=== PATIENT | male | born 1995 | race Caucasian/White ===

== ENCOUNTER 2018-07-02 19:12 | Emergency (ER) | payer BC, MEDICAID, SELFPAY ==
[2018-07-02 19:18] VITALS: BP 138/71; PULSE 66; RESP 16; TEMP 36.7; O2SAT 96
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
[2018-07-02 20:27] VITALS: BP 136/75; PULSE 68; RESP 16; TEMP 36.7; O2SAT 96
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
== END 2018-07-02 20:31 | disposition home or self-care (01) ==
PROVIDERS: Emergency Provider Student in an Organized Health Care Education/Training Program; PCP Family Medicine
DX: S06.0X0A Concussion without loss of consciousness, initial encounter (principal); R11.0 Nausea; M54.2 Cervicalgia; V43.52XA Car driver injured in collision with other type car in traffic accident, initial encounter; Z53.29 Procedure and treatment not carried out because of patient's decision for other reasons
CPT/HCPCS: 99283

== ENCOUNTER 2021-05-04 18:22 | Emergency (ER) | payer OTHER, SELFPAY ==
[2021-05-04 18:26] VITALS: BP 154/96; PULSE 83; RESP 18; TEMP 36.2; O2SAT 97
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
--- NOTE | 2021-05-04 19:11 | NUR.NOTE ---
Pt brought to eyewash station to flush right eye, tolerated well. Pt c/o headache, provider notified, order recieved for intervention, medicated as ordered, cont. to monitor.Nursing Note:
[2021-05-04] MEDS: Ibuprofen 600 MG TAB PO (19:16)
[2021-05-04 19:22] LABS: ALT 31 U/L (16-63); AST 17 U/L (15-37); Albumin 4.4 g/dL (3.4-5.0); Alkaline Phosphatase 80 U/L (46-116); Bilirubin, Direct 0.1 mg/dL (0.0-0.2); Bilirubin, Total 0.7 mg/dL (0.2-1.0); Total Protein 8.5 g/dL (6.4-8.2)
[2021-05-04 19:37] VITALS: BP 132/78; PULSE 62; RESP 18; TEMP 37; O2SAT 99
[2021-05-04 19:58] LABS: HIV 1/2 Ab Rapid Negative (Negative)
[2021-05-08 10:09] LABS: HBs Antibody, Quant 7.7 mIU/mL (See Note); Hepatitis B Surface Ab Negative (See Note)
[2021-05-08 10:39] LABS: Hepatitis B Surface Ag Negative (Negative)
[2021-05-08 10:54] LABS: Hepatitis C Ab w Rflx HCV PCR Negative (Negative)
[2021-05-08 11:05] LABS: HIV-1/2 Ag & Ab Screen Negative (Negative)
== END 2021-05-04 19:38 | disposition home or self-care (01) ==
PROVIDERS: Emergency Provider Physician Assistant; PCP Family Medicine
DX: Z77.21 Contact with and (suspected) exposure to potentially hazardous body fluids (principal); Y99.0 Civilian activity done for income or pay
CPT/HCPCS: 36415; 80076; 86706; 86803; 87340; 87389; 99283; 99282

== ENCOUNTER 2021-05-17 02:15 | Outpatient (CLI) | payer BC, MEDICAID, SELFPAY ==
[2021-05-17 14:19] LABS: HCT 43.1 % (40.0-50.0); HGB 14.3 g/dL (13.5-17.5); MCH 28.1 pg (27.0-33.0); MCHC 33.2 % (32.0-36.0); MCV 84.8 fL (80-95); MPV 8.8 fL (8.0-11.0); Platelet Count 240 10^3/uL (130-400); RBC 5.08 10^6/uL (4.36-5.78); RDW 12.9 % (11.8-14.1); RDW-SD 39.8 fL; WBC 5.42 10^3/uL (4.4-10.8)
[2021-05-17 16:22] LABS: ALT 31 U/L (16-63); AST 16 U/L (15-37); Albumin 4.1 g/dL (3.4-5.0); Alkaline Phosphatase 77 U/L (46-116); Anion Gap 7.1 mmol/L (3-11); BUN 13 mg/dL (7-18); Bilirubin, Total 0.7 mg/dL (0.2-1.0); CO2 29.9 mmol/L (21.0-32.0); CREATININE 1.1 mg/dL (0.70-1.30); Calcium 8.7 mg/dL (8.5-10.1); Chloride 104 mmol/L (98-107); Glucose 88 mg/dL (74-106); Potassium 3.9 mmol/L (3.5-5.1); Sodium 141 mmol/L (136-145); TSH (W/Ref FT4) 1.81 uIU/mL (0.36-3.74); Total Protein 7.6 g/dL (6.4-8.2)
== END 2021-05-17 02:16 | disposition home or self-care (01) ==
LOC: LBO 02:15
PROVIDERS: PCP Family Medicine; Visit Provider Family Medicine
DX: E03.9 Hypothyroidism, unspecified (principal); R53.83 Other fatigue; R10.9 Unspecified abdominal pain
CPT/HCPCS: 36415; 80053; 85027; 84443

== ENCOUNTER 2021-06-06 11:24 | Outpatient (REF) | payer BC, MEDICAID, SELFPAY ==
[2021-06-07 15:07] LABS: COVID-19 RT-PCR UVMMC Result Negative (Negative)
== END 2021-06-06 11:25 | disposition home or self-care (01) ==
LOC: LBN 11:24
PROVIDERS: PCP Family Medicine; Visit Provider Nurse Practitioner
DX: J02.9 Acute pharyngitis, unspecified (principal); Z20.822 Contact with and (suspected) exposure to COVID-19
CPT/HCPCS: U0003; 87070

== ENCOUNTER 2021-11-02 10:53 | Outpatient (CLI) | payer BC, MEDICAID, SELFPAY ==
[2021-11-02 13:53] LABS: Calculated LDL 91 mg/dL (<100); Cholesterol 147 mg/dL (<200); HDL Cholesterol 47 mg/dL (40-60); Triglyceride 45 mg/dL (<150)
== END 2021-11-02 10:54 | disposition home or self-care (01) ==
LOC: LOS 10:53
PROVIDERS: PCP Family Medicine; Referring Provider Family Medicine; Visit Provider Family Medicine
DX: E78.5 Hyperlipidemia, unspecified (principal)
CPT/HCPCS: 36415; 80061

== ENCOUNTER 2023-06-21 05:50 | Emergency (ER) | payer MEDICAID, SELFPAY ==
[2023-06-21] VITALS (12 sets, daily range): BP systolic 138–156; BP diastolic 77–105; PULSE 86–92; RESP 18; TEMP 37.5; O2SAT 93–98
--- NOTE | 2023-06-21 06:00 | DI.CT_ITS ---
Exam(s) CT ABDOMEN PELVIS W EXAM: CT ABDOMEN PELVIS W CLINICAL HISTORY: epigastric pain, vomiting, r/o GB pathology TECHNIQUE: Imaging Protocol: Axial computed tomography images with coronal and sagittal reformatted images were created and reviewed CONTRAST MATERIAL: Intravenous: Omnipaque 350 Contrast volume:100 mL Oral: No COMPARISON: No exams were available for comparison FINDINGS: ABDOMEN: Lung Bases: Normal where visualized. Liver: Normal density. No measurable mass. Portal, Superior Mesenteric, and Splenic Veins: Unremarkable. Gallbladder and Biliary Tract: No radiodense calculus or dilation. Pancreas: Normal density, no abnormal calcifications or inflammatory process. Spleen: Normal. Adrenals: No masses seen. Kidneys: Normal size, contour and axis. No radiodense stones or obstructive uropathy. No masses seen. Note is made of a retroaortic left renal vein. Abdominal Aorta: Abdominal portion non-dilated. Bowel: The stomach is fluid-filled but otherwise unremarkable. There are fluid-filled loops of small bowel without bowel wall thickening or transition to suggest obstruction. This raises a question of an enteritis or diarrheal illness. The colon is of normal caliber and has an unremarkable appearanc e. Appendix is unremarkable. Peritoneal Cavity: No ascites, collection or mesenteric inflammatory response. No free air. Lymph Nodes: Within normal limits. Bones: Within normal limits for the patient's age. Soft Tissues: Unremarkable. PELVIS: Bladder: Symmetric distention, no gross wall thickening. Reproductive Organs: Unremarkable as visualized. Lymph Nodes: Within normal limits. Bones: Within normal limits for the patient's age. IMPRESSION: 1. Fluid-filled loops of small bowel which can be seen with a diarrheal illness or enteritis. 2. No evidence of cholelithiasis or biliary ductal dilatation. 3. Findings were discussed with the emergency department on the date of the examination. RADIATION DOSE DELIVERED: 1,169.47mGy.cm Total DLP DATA REPOSITORY: All CT scans at this facility are submitted to the National Radiology Data Registry (NRDR) Dose Index Registry (DIR) with the [employer] (ACR). RADIATION OPTIMIZATION: All CT scans at this facility use at least one of these dose optimization te chniques: automated exposure control; mA and/or kV adjustment per patient size (includes targeted exa ms where dose is matched to clinical indication); or iterative reconstruction.
[2023-06-21] MEDS: Normal Saline 500 ML IV (06:13)
[2023-06-21] MEDS: Ketorolac 15 MG/ML VIAL IVP (06:13)
[2023-06-21] MEDS: Ondansetron 4 MG/2 ML VIAL IVP (06:13)
[2023-06-21] MEDS: ACETAMINOPHEN 1,000 MG/100 ML BTL 400 MG IVPB (06:13)
--- NOTE | 2023-06-21 06:15 | W.ED.GENAD ---
HPI General Stated Complaint: Abd Prob LONNY: 3 Date/Time Provider Initiated Documentation: 06/21/23 05:53. HPI Narrative: 28-year-old male presents today for abdominal pain. Patient states that about 6 hours ago the pain came on suddenly, it is a pressure-like sensation in the epigastric region. However it radiates throughout the rest of his abdomen. He had a single episode of vomiting. He denies any diarrhea or fever. He did eat pizza and on spicy buffalo wings last night, but these are not out of the ordinary for him. He did drink some alcohol a few days ago but this was only a couple beers. He denies any chest pain. He denies any numbness or tingling. He denies symptoms like this recently otherwise. No other complaints at this time. Related Data Home Medications Medication Instructions Recorded Confirmed ibuprofen 400 mg tablet 1 tab PO PRN PRN 07/02/18 06/21/23 dextroamphetamine-amphetamine ER 10 mg PO DAILY #28 caps 04/09/23 06/21/23 10 mg 24hr capsule,extend release dextroamphetamine-amphetamine ER 30 mg PO DAILY #28 caps 04/09/23 06/21/23 30 mg 24hr capsule,extend release Previous Rx's Medication Instructions Recorded dextroamphetamine-amphetamine ER 10 mg PO DAILY #28 caps 04/09/23 10 mg 24hr capsule,extend release dextroamphetamine-amphetamine ER 30 mg PO DAILY #28 caps 04/09/23 30 mg 24hr capsule,extend release Allergies Allergy/AdvReac Type Severity Reaction Status Date / Time No Known Allergies Allergy Verified 06/21/23 05:59 Review of Systems All systems reviewed & are unremarkable except as noted in HPI and below PFSH All Active Problems (Updated 06/21/23 @ 07:15 by Josias Shipley DO) Epigastric pain (Acute) Back pain (Acute) ADD (attention deficit disorder) (Acute) Anxiety and depression (Chronic) Chest pain, atypical (Acute) Exposure to body fluid (Acute) Physical exam (Acute) Encounter for immunization (Acute) Pilonidal cyst (Chronic) Has had 2 I&Ds for this but no surgical repair Tonsillar hypertrophy (Acute) Medical History No significant past medical history Surgical History H/O wisdom tooth extraction S/P right rotator cuff repair (~2018) Family History Mother No problems noted. Father No problems noted. Sister No problems noted. Brother No problems noted. Maternal Grandfather , in his 80s Heart disease Myocardial infarction Bladder cancer Maternal Grandmother No problems noted. Paternal Grandfather Heart disease Paternal Grandmother Hypertension Depression Pancreatic cancer Type 2 diabetes mellitus Social History Smoking/Tobacco Use Status: Never Smoking risk assessment performed?: Yes Alcohol Intake: current Alcohol Intake frequency: holidays/special occasions only Alcohol type: beer Drug use: Never Substance use type: does not use Do you feel safe at home: Yes Do you feel safe in your relationship?: Yes Exam Narrative Exam Narrative: 1.Const: Well-nourished, Well-developed, appearing stated age 2.Eyes: PERRL, no conjunctival injection, and symmetrical lids. 3.ENT: Atraumatic external nose and ears. Moist MM. Neck: Symmetric, trachea midline, No thyromegaly. 4.CVS: +S1/S2, No murmurs or gallops. Peripheral pulses 2+ and equal in all extremities. Brisk capillary refill in all extremities. 5.RESP: Unlabored respiratory effort. Clear to auscultation bilaterally. No wheezes rales or rhonchi 6.GI: Soft, nondistended. Mild voluntary guarding. Tenderness in the left upper mid epigastric and right upper quadrants. No pain to McBurney's point. Questionably positive Lala sign. 7.MSK: Normocephalic/Atraumatic, Extremities w/o deformity or ttp No cyanosis or clubbing, Normal movement of all extremities 8.Skin: Warm, Dry. No rashes or lesions. 9.Neuro: microbiology soil scientist II-XII grossly intact. Sensation grossly intact, no focal neurologic deficits. 10.Psych: (AAO) x3. Appropriate mood and affect Course Vital Signs Vital signs: Vital Signs Temperature 37.5 C 06/21/23 05:53 Pulse 90 06/21/23 05:53 Respiratory Rate 18 06/21/23 05:53 Blood Pressure 156/86 H 06/21/23 05:53 Pulse Oximetry 98 06/21/23 05:53 Temperature 37.5 C 06/21/23 05:53 Temperature Source Skin 06/21/23 05:53 Pulse 90 06/21/23 05:53 Respiratory Rate 18 06/21/23 05:53 Blood Pressure 156/86 H 06/21/23 05:53 Blood Pressure Position Sitting 06/21/23 05:53 Pulse Oximetry 98 06/21/23 05:53 Oxygen Delivery Method Room Air 06/21/23 05:53 Oxygen Flow Rate 0 06/21/23 05:53 Medical Decision Making 28-year-old male presents today for abdominal pain. Patient states that about 6 hours ago the pain came on suddenly, it is a pressure-like sensation in the epigastric region. However it radiates throughout the rest of his abdomen. He had a single episode of vomiting. He denies any diarrhea or fever. He did eat pizza and on spicy buffalo wings last night, but these are not out of the ordinary for him. He did drink some alcohol a few days ago but this was only a couple beers. He denies any chest pain. He denies any numbness or tingling. He denies symptoms like this recently otherwise. No other complaints at this time. Exam demonstrates epigastric left and right upper quadrant tenderness. Questionable positive Lala sign. No pain in the lower abdomen of significance. No CVA tenderness. Differential includes cholecystitis, pancreatitis, less likely gastric irritation. Kidney stone is on the differential as well. Will give IV NSAIDs, Zofran, GI cocktail, check labs, get a CT scan of the abdomen to go over monitor closely and reassess. Symptoms appearing consistent with ACS or cardiac etiology. 7:13 AM On reassessment patient is feeling much better after Zofran Toradol and Ofirmev. Pain has diminished to a 2 out of 10. He states that he feels well and the nausea is gone. Laboratory workup shows no white count, minimal left shift. No bandemia. Electrolytes normal, bilirubin is elevated at 1.4, creatinine elevated at 1.5 which is atypical. He denies any recent ibuprofen use. Lipase normal. Patient has not urinated yet. We will add an additional liter of normal saline in addition to the 500 that he already got. Pending CT scan results at this time. Personal review demonstrates fluid-filled small bowel, slightly distended stomach. Gallbladder appears mildly enlarged. Pending formal radiology report. Patient has been signed out to my colleague Dr. Frye. She will follow-up on urinalysis, CT scan results, and reassessment. If CT scan normal, after fluids I feel that the patient may be a good candidate for discharge otherwise. Quality:SDOH Health Related Social Needs: No Data to Display Discharge Plan Discharge Details Chief Complaint: Abd Prob Clinical Impression: Epigastric pain Primary Care Provider: Charly Vázquez ED Provider: Josias Shipley Home Meds and New Rx's Prescriptions: No Action dextroamphetamine-amphetamine 10 mg capsule,extended release 24hr 10 mg PO DAILY MDD 1 cap Qty: 28 0RF Rx Instructions: take with a 30 mg to equal 40 mg/day dextroamphetamine-amphetamine 30 mg capsule,extended release 24hr 30 mg PO DAILY MDD 1 cap Qty: 28 0RF Rx Instructions: take with a 10 mg cap to equal 40 mg/day ibuprofen 400 mg Tablet 1 tab PO PRN PRN
[2023-06-21 06:31] LABS: Abs Immature Grans 0.02 10^3/uL (0.0-0.06); Absolute Basophil Count 0.02 10^3/uL (0.0-0.2); Absolute Eosinophil Count 0.16 10^3/uL (0.0-0.7); Absolute Lymphocyte Count 1.13 10^3/uL (1.2-3.4); Absolute Monocyte Count 0.87 10^3/uL (0.1-0.8); Absolute Neutrophil Count 8.26 10^3/uL (1.2-6.7); Basophils % 0.2; Eosinophils % 1.5; HCT 46.5 % (40.0-50.0); HGB 15.6 g/dL (13.5-17.5); Immature Grans % 0.2; Lymphocytes % 10.8; MCH 28.6 pg (27.0-33.0); MCHC 33.5 % (32.0-36.0); MCV 85 fL (80-95); MPV 8.8 fL (8.0-11.0); Monocytes % 8.3; Platelet Count 284 10^3/uL (130-400); RBC 5.45 10^6/uL (4.36-5.78); RDW 13.4 % (11.8-14.1); RDW-SD 41.4 fL; WBC 10.46 10^3/uL (4.4-10.8)
[2023-06-21 06:50] LABS: ALT 27 U/L (16-63); AST 18 U/L (15-37); Alkaline Phosphatase 77 U/L (46-116); Anion Gap 7.7 mmol/L (3-11); BUN 17 mg/dL (7-18); Bilirubin, Total 1.4 mg/dL (0.2-1.0); CO2 31.3 mmol/L (21.0-32.0); CREATININE 1.5 mg/dL (0.70-1.30); Chloride 102 mmol/L (98-107); Estimated GFR 65.03 (mL/min/1.73m2); Glucose 101 mg/dL (74-106); Lipase 34 U/L (16-77); Potassium 4.6 mmol/L (3.5-5.1); Sodium 141 mmol/L (136-145); Total Protein 8.1 g/dL (6.4-8.2)
[2023-06-21] MEDS: Omnipaque 350 MG/ML 100 ML BTL IJ (07:00)
[2023-06-21] MEDS: Normal Saline - Diluent 50 ML VIAL IJ (07:01)
[2023-06-21] MEDS: Normal Saline Flush 10 ML SYR IVP (07:01)
[2023-06-21] MEDS: Normal Saline 1,000 ML 1000 ML IV (07:10)
--- NOTE | 2023-06-21 07:23 | ED.PROG_ITS ---
Date of service: 06/21/23 Time of Service: 07:00 Medical Decision Making 28-year-old male presented with epigastric pain and an episode of vomiting. At time of signout patient is feeling improved. Laboratory studies show mildly elevated creatinine today. Patient did receive 2 L of IV fluid. His symptoms remained improved. At time of my assessment he is not having significant pain. He has not had any further vomiting. CT shows fluid-filled loops of bowel. Likely some type of enteritis. Patient is aware of findings. He understands that this may progress to more vomiting and diarrhea. Will discharge home. Patient to push fluids and advance diet as tolerated. Patient is to follow up with PMD. Patient understands that symptoms may worsen and the testing in the emergency department does not rule out the early stages of a possible surgical condition. Will return to ED for worsening pain, migration of pain to right lower abdomen, high fevers, or intractable vomiting. Quality:[facility] Health Related Social Needs: No Data to Display Sign Out Sign Out Data: Sign Out Comment: Epigastric pain, single episode of vomiting. Please follow-up on CT scan and urinalysis. Patient's symptoms notably improved since medications, likely a good candidate for discharge if imaging and urinalysis normal. Last updated by Josias Shipley DO at 06/21/23 07:16 Discharge Plan Disposition Patient Disposition: Home Discharge Details Clinical Impression: Epigastric pain, Vomiting Primary Care Provider: Charly Vázquez ED Provider: Ariella Rowe Home Meds and New Rx's Prescriptions: New ondansetron 4 mg tablet,disintegrating 4 mg PO Q6H Qty: 20 0RF No Action dextroamphetamine-amphetamine 10 mg capsule,extended release 24hr 10 mg PO DAILY MDD 1 cap Qty: 28 0RF Rx Instructions: take with a 30 mg to equal 40 mg/day dextroamphetamine-amphetamine 30 mg capsule,extended release 24hr 30 mg PO DAILY MDD 1 cap Qty: 28 0RF Rx Instructions: take with a 10 mg cap to equal 40 mg/day ibuprofen 400 mg Tablet 1 tab PO PRN PRN Discharge Instructions Instructions: Gastroenteritis (ED), Epigastric Pain (ED) Additional Instructions: Symptoms may worsen and the testing in the emergency department does not rule out the early stages of a possible surgical condition. Return to ED for worsening pain, migration of pain to right lower abdomen, high fevers, or intractable vomiting. Referrals: Chraly Vázquez MD [Primary Care Provider] - 3 days Discharge Data Discharge Physician: Ariella Rowe
[2023-06-21 08:22] LABS: Bilirubin Negative (Negative); Blood Negative (Negative); Clarity Clear (Clear); Glucose Negative (Negative); Ketones Negative (Negative); Leukocyte Esterase Negative (Negative); Nitrite Negative (Negative); Specific Gravity 1.015 (1.005-1.025); Urobilinogen 0.2 mg/dL (Up to 0.2)
[2023-06-21] MEDS: Ondansetron O.D.T. 4 MG TABEF, 3 TABS/BTL PO (08:42)
== END 2023-06-21 08:42 | disposition home or self-care (01) ==
PROVIDERS: Student in an Organized Health Care Education/Training Program; Emergency Provider Emergency Medicine Emergency Medical Services; PCP Family Medicine
DX: R10.13 Epigastric pain (principal); R11.0 Nausea; K52.9 Noninfective gastroenteritis and colitis, unspecified
CPT/HCPCS: 00123; 80053; 83690; 96361; 96374; 96375; 99285; 74177; 81003; 85025; 99284; J0131; J1885; J2405; J3490

== ENCOUNTER 2023-09-06 20:59 | Emergency (ER) | payer OTHER, SELFPAY ==
[2023-09-06] VITALS (13 sets, daily range): BP systolic 88–143; BP diastolic 61–98; PULSE 70–100; RESP 16–18; TEMP 36.9; O2SAT 97
--- NOTE | 2023-09-06 21:15 | DI.RAD_ITS ---
Exam(s) XR ABDOMEN FLAT UPRIGHT EXAM: 2D digital imaging was performed. CLINICAL HISTORY: abdominal pain. COMPARISON: CR ABDOMEN 2 VIEW FLAT, UPRIGHT from 04/17/[address] ABDOMEN PELVIS W from 06/21/2023 TECHNIQUE: Supine and upright views of the abdomen was performed. Three images were obtained. FINDINGS: LUNG BASES: Clear. BOWEL GAS PATTERN: Nondistended. There are few air-fluid level seen in the central abdomen which may represent a focal ileus. FREE AIR: None. CALCIFICATIONS: No radiopaque calcifications. OSSEOUS STRUCTURES: Normal for age. OTHER FINDINGS: None. IMPRESSION: No evidence of bowel obstruction. DATA REPOSITORY: RADIATION DOSE DELIVERED:
[2023-09-06 21:40] LABS: Abs Immature Grans 0.02 10^3/uL (0.0-0.06); Absolute Basophil Count 0.03 10^3/uL (0.0-0.2); Absolute Monocyte Count 0.68 10^3/uL (0.1-0.8); Absolute Neutrophil Count 7.96 10^3/uL (1.2-6.7); Basophils % 0.3; HCT 47.9 % (40.0-50.0); HGB 16.4 g/dL (13.5-17.5); Immature Grans % 0.2; Lymphocytes % 10.2; MCHC 34.2 % (32.0-36.0); MCV 85 fL (80-95); MPV 8.7 fL (8.0-11.0); Monocytes % 6.9; Neutrophils % 81.4; Platelet Count 322 10^3/uL (130-400); RBC 5.65 10^6/uL (4.36-5.78); RDW 12.2 % (11.8-14.1); RDW-SD 37.9 fL; WBC 9.79 10^3/uL (4.4-10.8)
[2023-09-06] MEDS: FAMOTIDINE 20 MG in Normal Saline 100 ML 400 MG IVPB (21:45)
[2023-09-06 21:55] LABS: ALT 28 U/L (16-63); AST 13 U/L (15-37); Alkaline Phosphatase 90 U/L (46-116); Anion Gap 9.1 mmol/L (3-11); BUN 18 mg/dL (7-18); Bilirubin, Total 1.2 mg/dL (0.2-1.0); CO2 27.9 mmol/L (21.0-32.0); CREATININE 1.2 mg/dL (0.70-1.30); Calcium 8.6 mg/dL (8.5-10.1); Chloride 103 mmol/L (98-107); Glucose 108 mg/dL (74-106); Lipase 28 U/L (16-77); Potassium 4.1 mmol/L (3.5-5.1); Sodium 140 mmol/L (136-145); Total Protein 8.4 g/dL (6.4-8.2)
[2023-09-06] MEDS: Hyoscyamine 0.5 MG/ML VIAL 0.25 MG IVP (22:18)
--- NOTE | 2023-09-06 22:34 | DI.VRAD_ITS ---
PROCEDURE INFORMATION: Exam: XR Abdomen Exam date and time: 09/06/2023 9:52 PM Age: 28 years old Clinical indication: Patient HX: Abdominal pain x this morning, no HX of abd surg TECHNIQUE: Imaging protocol: Radiologic exam of the abdomen. Views: 2 Views. Upright and supine views. COMPARISON: CT ABDOMEN PELVIS W 06/21/2023 6:54 AM FINDINGS: Gastrointestinal tract: A couple dilated loops of small bowel in the mid abdomen with non differential air-fluid levels, suggests focal ileus. Intraperitoneal space: Normal. No free air. Bones/joints: Unremarkable for age. IMPRESSION: A couple dilated loops of small bowel in the mid abdomen with non differential air-fluid levels, suggests focal ileus. Dictated and Authenticated by: Mati Ndiaye MD. Ordering:AIMEE Saucedo MD
[2023-09-06] MEDS: Ketorolac 15 MG/ML VIAL IVP (22:53)
[2023-09-06] MEDS: Normal Saline 1,000 ML 1000 ML IV (22:53)
--- NOTE | 2023-09-06 22:55 | ED.GENADUL_ITS ---
Discharge Plan Disposition Patient Disposition: Home Condition: Stable Discharge Details Clinical Impression: Abdominal pain Primary Care Provider: Charly Vázquez ED Provider: Sheryl Lafleur Home Meds and New Rx's Prescriptions: New prochlorperazine maleate [Compazine] 10 mg tablet 10 mg PO Q6H PRNQty: 10 0RF Continued dextroamphetamine-amphetamine 15 mg capsule,extended release 24hr 45 mg PO DAILY MDD 3 caps Qty: 90 0RF ibuprofen 400 mg Tablet 1 tab PO PRN PRN Discharge Instructions Instructions: Abdominal Pain (ED) Additional Instructions: take compazine as needed for nausea and vomiting increase fluids, 8,8 oz glasses of water bland, low fiber diet recommend outpatient colonscopy recheck in 24 hours with new, persistent or worsening complaints Referrals: Charly Vázquez MD [Primary Care Provider] - Discharge Data Discharge Date/Time-TO BE ENTERED AT DEPARTURE: 09/06/23 23:51 HPI General Date/Time Provider Initiated Documentation: 09/06/23 21:19 . HPI Narrative: This 28-year-old male presents with left upper quadrant and right upper quadrant pain. Denies any nausea or vomiting. He states this is the same discomfort he was having when he was in the emergency department in June. He states he has moved his bowels several times today but it has been soft. He has not had a colonoscopy per patient. He denies any blood in stool. Denies any chest pain or shortness of breath. Denies any dizziness or weakness. Denies any urinary symptoms. Related Data Home Medications Medication Instructions Recorded Confirmed ibuprofen 400 mg tablet 1 tab PO PRN PRN 07/02/18 09/06/23 dextroamphetamine-amphetamine ER 45 mg (3 x 15 mg) PO DAILY ADD #90 09/02/23 09/06/23 15 mg 24hr capsule,extend release caps prochlorperazine maleate 10 mg 10 mg PO Q6H PRN #10 tabs 09/06/23 tablet (Compazine) Previous Rx's Medication Instructions Recorded dextroamphetamine-amphetamine ER 45 mg (3 x 15 mg) PO DAILY ADD #90 09/02/23 15 mg 24hr capsule,extend release caps prochlorperazine maleate 10 mg 10 mg PO Q6H PRN #10 tabs 09/06/23 tablet (Compazine) Allergies Allergy/AdvReac Type Severity Reaction Status Date / Time No Known Allergies Allergy Verified 09/06/23 21:04 General Stated Complaint: Abd Prob LONNY: 3 Course Vital Signs Vital signs: Vital Signs Temperature 36.9 C 09/06/23 21:02 Pulse 85 09/06/23 21:02 Respiratory Rate 18 09/06/23 21:02 Blood Pressure 140/91 H 09/06/23 21:02 Pulse Oximetry 97 09/06/23 21:02 Temperature 36.9 C 09/06/23 21:02 Pulse 98 H 09/06/23 22:15 Respiratory Rate 18 09/06/23 21:02 Respiratory Effort Normal 09/06/23 21:03 Blood Pressure 143/89 H 09/06/23 22:15 Blood Pressure Mean 104 09/06/23 22:15 Pulse Oximetry 97 09/06/23 21:02 Oxygen Delivery Method Room Air 09/06/23 21:02 Oxygen Flow Rate 0 09/06/23 21:02 Lab/Test Results Lab/Test Results: Laboratory Tests Range/Units 09/06/23 21:14 WBC (4.4-10.8) 10^3/uL 9.79 RBC (4.36-5.78) 10^6/uL 5.65 Hgb (13.5-17.5) g/dL 16.4 Hct (40.0-50.0) % 47.9 MCV (80-95) fL 85 MCH (27.0-33.0) pg 29.0 MCHC (32.0-36.0) % 34.2 RDW (11.8-14.1) % 12.2 Plt Count (130-400) 10^3/uL 322 MPV (8.0-11.0) fL 8.7 Immature Gran % 0.2 Neutrophils % 81.4 Lymphocytes % 10.2 Monocytes % 6.9 Eosinophils % 1.0 Basophils % 0.3 Nucleated RBC % (0.0-0.3) % 0.0 Absolute Neutrophils (1.2-6.7) 10^3/uL 7.96 H Absolute Lymphocytes (1.2-3.4) 10^3/uL 1.00 L Absolute Monocytes (0.1-0.8) 10^3/uL 0.68 Absolute Eosinophils (0.0-0.7) 10^3/uL 0.10 Absolute Basophils (0.0-0.2) 10^3/uL 0.03 Sodium (136-145) mmol/L 140 Potassium (3.5-5.1) mmol/L 4.1 Chloride (98-107) mmol/L 103 Carbon Dioxide (21.0-32.0) mmol/L 27.9 Anion Gap (3-11) mmol/L 9.1 BUN (7-18) mg/dL 18 Creatinine (0.70-1.30) mg/dL 1.2 Est GFR (CKD-EPI 2020) (mL/min/1.73m2) 85.00 Glucose (74-106) mg/dL 108 H Calcium (8.5-10.1) mg/dL 8.6 Total Bilirubin (0.2-1.0) mg/dL 1.2 H AST (15-37) U/L 13 L ALT (16-63) U/L 28 Alkaline Phosphatase (46-116) U/L 90 Total Protein (6.4-8.2) g/dL 8.4 H Albumin (3.4-5.0) g/dL 4.0 Lipase (16-77) U/L 28 Medical Decision Making 28-year-old male presenting with left upper quadrant right upper quadrant pain. Had CT scan for similar presentation approximately 2 months ago she did not show acute abnormality per radiology interpretation my review Reviewed patient's prior documentation, creatinine was mildly elevated at that time, today creatinine is within normal limits Mild elevation in bilirubin likely consistent with Combs Bears, consistent with patient Patient has a benign abdominal exam, x-ray shows possible ileus however patient is moving bowels without vomiting, no evidence of obvious bowel obstruction, no prior abdominal surgeries Feeling improvement after Levsin, will hold on additional Levsin at home, will supply Compazine and Pepcid. Encouraged to be reevaluated in 24 hours with persistent discomfort. return precautions reviewed and pt expressed understanding Quality:SDOH Health Related Social Needs: No Data to Display PFSH All Active Problems (Updated 09/06/23 @ 23:09 by KODY Sevilla) Abdominal pain (Acute) Back pain (Acute) ADD (attention deficit disorder) (Acute) Anxiety and depression (Chronic) Chest pain, atypical (Acute) Exposure to body fluid (Acute) Physical exam (Acute) Encounter for immunization (Acute) Pilonidal cyst (Chronic) Has had 2 I&Ds for this but no surgical repair Tonsillar hypertrophy (Acute) Medical History No significant past medical history Surgical History H/O wisdom tooth extraction S/P right rotator cuff repair (~2018) Family History Mother No problems noted. Father No problems noted. Sister No problems noted. Brother No problems noted. Maternal Grandfather , in his 80s Heart disease Myocardial infarction Bladder cancer Maternal Grandmother No problems noted. Paternal Grandfather Heart disease Paternal Grandmother Hypertension Depression Pancreatic cancer Type 2 diabetes mellitus Social History Smoking/Tobacco Use Status: Never Smoking risk assessment performed?: Yes Alcohol Intake: current Alcohol Intake frequency: holidays/special occasions only Alcohol type: beer Drug use: Never Substance use type: does not use Do you feel safe at home: Yes Do you feel safe in your relationship?: Yes
--- NOTE | 2023-09-07 05:23 | NUR.NOTE ---
Pt placed on care management referral list for Colonoscopy to be seen as soon as possible.
== END 2023-09-06 23:51 | disposition home or self-care (01) ==
PROVIDERS: Emergency Provider Physician Assistant; PCP Family Medicine
DX: R10.13 Epigastric pain (principal)
CPT/HCPCS: 80053; 83690; 96361; 96374; 96375; 99284; 74019; 81003; 85025; J1885; J1980

== ENCOUNTER 2023-12-30 12:22 | Emergency (ER) | payer OTHER, SELFPAY ==
[2023-12-30 12:28] VITALS: BP 155/83; PULSE 76; RESP 20; TEMP 37; O2SAT 99
--- OUTSIDE RECORDS SUMMARY | 2023-12-30 12:34 | XMS_ITS | Clinical Summary ---
Author Organization [facility] Address [address] [place] [address] Care Team Providers Care Mobile Solutions Architect Name Role Phone Unknown, Provider Primary Care Provider Social History Tobacco Use Types Packs/Day Years Used Date Smoking Tobacco: Never Assessed Sex and Gender Information Value Date Recorded Sex Assigned at Not on file Gender Identity Not on file Sexual Orientation Not on file Plan of Treatment Health Maintenance Due Date Last Done Comments Hepatitis B Vaccine (1 of 3 - 19+ 3-dose series) 02/15 COVID-19 Vaccine ( season) 2023 Hepatitis C Screen Completed 05/04/2021 Procedures Procedure Name Priority Date/Time Associated Diagnosis Comments HEPATITIS C AB W REFLEX TO HCV RNA BY PCR Routine 05/04/2021 18:50 EST from Last 3 Months or Most Recently Relevant to Health Maintenance Results * HEPATITIS C AB W REFLEX TO HCV RNA BY PCR (05/04/2021 18:50 EST) Hep C Antibody Negative Negative 05/08/2021 10:49 EST [facility] Blood VENOUS BLOOD / Unknown 05/04/2021 18:50 EST 05/05/2021 15:53 EST Provider Outr Resulting Lab CHEMISTRY & BLOOD GAS ORDERABLES [facility] [address] [place] [address] from Last 3 Months or Most Recently Relevant to Health Maintenance Care Teams Mobile Solutions Architect Relationship Specialty Start Date End Date Unknown, Provider, PCP - General 11/17/15
--- OUTSIDE RECORDS SUMMARY | 2023-12-30 12:34 | XMS_ITS | Encounter Summary ---
Author Organization [facility] Address [address] [place] [address] Care Team Providers Care Tray Line Worker Name Role Phone Unknown, Provider Primary Care Provider [phone] Encounter Details Date Type Department Care Team (Late st Contact Info) Description 06/06/2021 Lab Requisition [facility] Pathology & Laboratory Medicine - [facility] [address] [place] [address] Outr Resulting Lab, Provider Social History Tobacco Use Types Packs/Day Years Used Date Smoking Tobacco: Never Assessed Sex and Gender Information Value Date Recorded Sex Assigned at Not on file Gender Identity Not on file Sexual Orientation Not on file documented as of this encounter Plan of Treatment Not on file documented as of this encounter Procedures Procedure Name Priority Date/Time Associated Diagnosis Comments ZZCOVID-19 TEST [facility] PCR Today 06/06/2021 10:45 EST COVID-19 TESTING Routine 06/06/2021 10:4 5 EST documented in this encounter Results * COVID-19 TEST [facility] PCR (06/06/2021 10:45 EST) Swab 06/06/2021 10:4 5 EST 06/06/2021 17:23 EST Provider Outr Resulting Lab MICROBIOLOGY - GENERAL ORDERABLES [facility] [address] [place] [address] * COVID-19 TESTING (06/06/2021 10:45 EST) COVID-19 rt-PCR Result Negative Negative 06/07/2021 15:01 EST [facility] Comment: This test has not been FDA cleared or approved. This test has been authorized by FDA under an EUA for use by authorized laboratories. This test has been authorized only for detection of nucleic acid from 2019-nCoV, not for any other viruses or pathogens. This test is only authorized for the duration of the declaration that circumstances exist justifying the authorization of emergency use of in vitro diagnostic tests for detection and/or diagnosis of 2019-nCoV under section 564(b)(1) of Act, 21 U.S.C ?? 360bbb-3(b) (1), unless the authorization is terminated or revoked sooner. Negative results do not preclude 2019-nCoV infection and should not be used as the sole basis for treatment or other patient management decisions. Negative results must be combined with clinical observations, patient history, and epidemiological information. This test was developed and its performance characteristics determined by [facility]. It has not been cleared or approved by the US Food and Drug Administration. FDA does not require this test to go through premarket FDA review. This test is used for clinical purposes. It should not be regarded as investigational or for research. This laboratory is certified under the Clinical Laboratory Improvement Amendments (CLIA) as qualified to perform high complexity clinical laboratory testing. This test is based on the CDC COVID-19 Emergency Use Authorization (EUA) assay, with minor modification as defined by the FDA Performed on the [employer] 7 Flex RT-PCR System. Performing Lab [facility] 06/07/2021 15:01 EST [facility] Swab 06/06/2021 10:4 5 EST 06/06/2021 17:23 EST Provider Outr Resulting Lab MICROBIOLOGY - GENERAL ORDERABLES [facility] [address] [place] [address] documented in this encounter Visit Diagnoses Not on filedocumented in this encounter Care Teams Tray Line Worker Relationship Specialty Start Date End Date Unknown, Provider, PCP - General 11/17/15 documented as of this encounter
--- OUTSIDE RECORDS SUMMARY | 2023-12-30 12:34 | XMS_ITS | Referral Summary ---
Author Organization [facility] Address [address] [place] [id number] Care Team Providers Care Auto Air Conditioning Installer Name Role Phone Unknown, Provider Primary Care Provider [phone] Social History Tobacco Use Types Packs/Day Years Used Date Smoking Tobacco: Never Assessed Sex and Gender Information Value Date Recorded Sex Assigned at Not on file Gender Identity Not on file Sexual Orientation Not on file Plan of Treatment Not on file Procedures Procedure Name Priority Date/Time Associated Diagnosis Comments HEPATITIS C AB W REFLEX TO HCV RNA BY PCR Routine 05/04/2021 18:50 EST from Last 3 Months or Most Recently Relevant to Health Maintenance Results * HEPATITIS C AB W REFLEX TO HCV RNA BY PCR (05/04/2021 18:50 EST) Hep C Antibody Negative Negative 05/08/2021 10:49 EST [facility] Blood VENOUS BLOOD / Unknown 05/04/2021 18:50 EST 05/05/2021 15:53 EST Provider Outr Resulting Lab CHEMISTRY & BLOOD GAS ORDERABLES [facility] [address] [place] [address] from Last 3 Months or Most Recently Relevant to Health Maintenance Care Teams Auto Air Conditioning Installer Relationship Specialty Start Date End Date Unknown, Provider, PCP - General 11/17/15
--- OUTSIDE RECORDS SUMMARY | 2023-12-30 12:34 | XMS_ITS | Encounter Summary ---
Author Organization [facility] Address [address] [place] [address] Care Team Providers Care Emergency Medicine Physician Name Role Phone Unknown, Provider Primary Care Provider Encounter Details Date Type Department Care Team (Late st Contact Info) Description 05/05/2021 Lab Requisition [facility] Pathology & Laboratory Medicine - [facility] [address] [place] [address] Outr Resulting Lab, Provider Social History Tobacco [...] Procedure Name Priority Date/Time Associated Diagnosis Comments HIV 1/2 ANTIGEN AND ANTIBODY, 4TH GENERATION Routine 05/04/2021 18:50 EST documented in this encounter Results * HIV 1/2 ANTIGEN AND ANTIBODY, 4TH GENERATION (05/04/2021 18:50 EST) HIV 1 and 2 Antibody/p24 Antigen, 4th Generation Negative Negative 05/08/2021 11:00 EST [facility] Comment:If acute HIV-1 infec tion is suspected in a high risk patient, submit plasma specimen for HIV-1 RNA quantitation test. Blood VENOUS BLOOD / Unknown 05/04/2021 18:50 EST 05/05/2021 15:54 EST Narrative [facility] - 05/08/2021 11:00 EST Fourth Generation assay performed on the Siemens Centaur XPT. Provider Outr Resulting Lab IMMUNOLOGY A ND SEROLOGY ORDERABLES [facility] [address] [place] [address] documented in this encounter Visit Diagnoses Not on filedocumented in this encounter Care Teams Emergency Medicine Physician Relationship Specialty Start Date End Date Unknown, Provider, PCP - General 11/17/15 documented as of this encounter
--- OUTSIDE RECORDS SUMMARY | 2023-12-30 12:35 | XMS_ITS | Encounter Summary ---
Author Organization [facility] Address [address] [place] [id number] Care Team Providers Care Sales Account Coordinator Name Role Phone Unavailable Primary Care Provider Unavailabl e Encounter Details Date Type Department Care Team (Latest Contact Info) Description 11/16/2015 14:00 EDT - 11/16/2015 23:59 EDT Hospital Encounter [address] [address] Unknown, Provider, Discharge Disposition: Home or Self Care Social History Tobacco Use Types Packs/Day Years Used Date Smoking Tobacco: Never Assessed Sex and Gender Information Value Date Recorded Sex Assigned at Not on file Gender Identity Not on file Sexual Orientation Not on file documented as of this encounter Discharge Disposition Disposition Code Departure Means Destination Home or Self Longterm documented in this encounter Plan of Treatment Not on file documented as of this encounter Visit Diagnoses Not on filedocumented in this encounter
--- OUTSIDE RECORDS SUMMARY | 2023-12-30 12:35 | XMS_ITS | Encounter Summary ---
Author Organization [facility] Address [address] [place] [address] Care Team Providers Care Group Burner Machine Name Role Phone Unknown, Provider Primary Care Provider [phone] Encounter Details Date Type Department Care Team (Late st Contact Info) Description 05/05/2021 Lab Requisition [facility] Pathology & Laboratory Medicine - [facility] [address] [place] [address] Outr Resulting Lab, Provider Social History Tobacco [...] RNA BY PCR Routine 05/04/2021 18:50 EST HEPATITIS B SURFACE ANTIBODY Routine 05/04/2021 18:50 EST HEPATITIS B SURFACE ANTIGEN Routine 05/04/2021 18:50 EST documented in this encounter Results * HEPATITIS B SURFACE ANTIBODY (05/04/2021 18:50 EST) Hep B Surface Ab, Quantitative 7.7 See Note mIU/mL 05/08/2021 10:06 [facility] Comment: Reference Range for Hep B Surface Ab, Quant: Positive: >= 10.0 mIU/mL Negative: ??< 10.0 mIU/mL Patient is presumed to not be immune to infection with Hepatitis B Virus. Hep B Surface Ab, Qualitative Negative See Note 05/08/2021 10:06 EST [facility] Comment: Reference Range for Hep B Surface Ab, Qual: Unvaccinated: ??Negative Vaccinated: ??Positive Blood VENOUS BLOOD / Unknown 05/04/2021 18:50 EST 05/05/2021 15:54 EST Provider Outr Resulting Lab CHEMISTRY & BLOOD GAS ORDERABLES Performing Organization Address [facility] Co de Phone Number [facility] [address] [place] [address] * HEPATITIS B SURFACE ANTIGEN (05/04/2021 18:50 EST) Hep B Surface Ag Negative Negative 05/08/2021 10:35 EST [facility] Blood VENOUS BLOOD / Unknown 05/04/2021 18:50 EST 05/05/2021 15:53 EST Provider Outr Resulting Lab CHEMISTRY & BLOOD GAS ORDERABLES Performing Organization Address [facility] Co de Phone Number [facility] [address] [place] [address] * HEPATITIS C AB W REFLEX TO HCV RNA BY PCR (05/04/2021 18:50 EST) Hep C Antibody Negative Negative 05/08/2021 10:49 EST [facility] Blood VENOUS BLOOD / Unknown 05/04/2021 18:50 EST 05/05/2021 15:53 EST Provider Outr Resulting Lab CHEMISTRY & BLOOD GAS ORDERABLES Performing Organization Address [facility] Co de Phone Number [facility] [address] [place] [address] documented in this encounter Visit Diagnoses Not on filedocumented in this encounter Care Teams Group Burner Machine Relationship Specialty Start Date End Date Unknown, Provider, PCP - General 11/17/15 documented as of this encounter
--- OUTSIDE RECORDS SUMMARY | 2023-12-30 12:35 | XMS_ITS | Encounter Summary ---
Author Organization [facility] Address [address] [place] [address] Care Team Providers Care Conventions Reservationist Name Role Phone Unknown, Provider Primary Care Provider [phone] Encounter Details Date Type Department Care Team (Late st Contact Info) Description 11/16/2015 Results Only [facility] [phone] Ban Hill, DO [address] [place] [address] Social History Tobacco Use Types Packs/Day Years Used Date Smoking Tobacco: Never Assessed Sex and Gender Information Value Date Recorded Sex Assigned at Not on file Gender Identity Not on file Sexual Orientation Not on file documented as of this encounter Plan of Treatment Not on file documented as of this encounter Procedures Procedure Name Priority Date/Time Associated Diagnosis Comments SURGICAL PATHOLOGY Routine 11/16/2015 11 :45 EDT documented in this encounter Results * SURGICAL PATHOLOGY (11/16/2015 11:45 EDT) Pathology Report: SURGICAL PATHOLOGY REPORT Reports generated via electronic interface contain original data; however they are lacking the format of the original report. Caution should be taken when reading/interpret ing unformatted reports. Name: ? KEHINDE SMALLS ? Accession #: ? [id number] ? : ? 1995 (Age: 20) ??M ? Collect Date: ? 11/16/2015 ? Location: ? [facility] ? Receive Date: ? 11/17/2015 ? Provider: BAN HILL DO Copy to: CHAYA ZEPEDA MD ? Final Pathologic Diagnosis: SKIN AND SUBCUTANEOUS TISSUE, PILONIDAL CYST, RESECTION: - ??Subcutaneous abscess and dermal acute and chronic inflammation with hair, consistent with clinical impression of pilonidal cyst. Document reviewed and electronically signed by: Libby Hernandez MD Report ??Date: 11/21/2015 17:29 By the signature above, the attending physician certifies that he/she has personally conducted a gross and/or microscopic examination of the described specimens and rendered or confirmed the above diagnosis. Specimen(s) Received: Pilonidal cyst Clinical History: Pilonidal cyst Gross Description: ? Received in formalin labelled with proper patient identification (initials G, D) and pilonidal cyst is an elongated 7.5 x 1.4 cm skin excised to a depth of up to 4.0 cm. The central skin surface shows a linear furrow. Sections through the specimen show a 3.5 cm linear sinus tract opening at one long axis aspect of the specimen along the deep margin. The tract wall is soft whitney-brown. The lumen contains minimal hair. Received in the same container are multiple additional fragmented soft tissues aggregating 5.5 x 5.0 x 2.5 cm. The tissue surfaces are ragged, hemorrhagic, and show protruding hair. Architecture Department Chair sections are submitted in 1-3 with block 3 containing a portion of the additionally submitted tissue. Alexia Pierre 11/17/2015 1:13 PM End of Report [facility] 11/16/2015 11:4 5 EDT 11/17/2015 11:45 EDT Ban Hill DO PATHOLOGY ORDERABLES [facility] [address] [place] [address] documented in this encounter Visit Diagnoses Not on filedocumented in this encounter Care Teams Conventions Reservationist Relationship Specialty Start Date End Date Unknown, Provider, PCP - General 11/17/15 documented as of this encounter
--- NOTE | 2023-12-30 13:36 | DI.RAD_ITS ---
Exam(s) XR RIBS LT W PA LAT CHEST EXAM: XR RIBS LT W PA LAT CHEST CLINICAL HISTORY: Left rib pain. TECHNIQUE: 2D digital imaging was performed. COMPARISON: No exams were available for comparison FINDINGS: Total = 6 views Left ribs-four views: No obvious left rib fractures. Clavicle intact. Chest x-ray-two views: Heart size normal. Mediastinum is not widened. No infiltrates nor pleural effusions. No pneumothor ax. IMPRESSION: No left rib fractures evident. No acute pulmonary findings. No pneumothorax. DATA REPOSITORY: RADIATION DOSE DELIVERED:
--- NOTE | 2023-12-30 15:08 | ED.GENADUL_ITS ---
Discharge Plan Disposition Patient Disposition: Home Condition: Stable Discharge Details Clinical Impression: Musculoskeletal strain Primary Care Provider: Charly Vázquez ED Provider: Rosanna Manzanares Home Meds and New Rx's Prescriptions: New lidocaine 4 % adhesive patch,medicated 1 patch topical DAILY PRN (Reason: pain) Qty: 15 0RF Rx Instructions: Place 1 patch topically daily to the affected area remove patch each day Continued dextroamphetamine-amphetamine [Adderall XR] 30 mg capsule,extended release 24hr 30 mg PO DAILY MDD 45 mg Qty: 28 0RF ibuprofen 400 mg Tablet 1 tab PO PRN PRN dextroamphetamine-amphetamine [Adderall XR] 15 mg capsule,extended release 2 4hr 15 mg PO DAILY MDD 3 caps Qty: 28 0RF Discharge Instructions Instructions: Costochondritis, Muscle Strain ED Additional Instructions: At this time no evidence of rib fractures or collapsed lung on the x-rays. Alternate ice and heat, use lidocaine patches as prescribed. Please take Tylenol or Ibuprofen with food every 4-6 hours as needed for pain and swelling. Follow up with primary care provider in 3-5 days. Return to ED sooner if any worsening shortness of breath or concerns. Stand Alone Forms: Work Release Referrals: Charly Vázquez MD [Primary Care Provider] - 1 week Discharge Data Discharge Date/Time-TO BE ENTERED AT DEPARTURE: 12/30/23 15:24 HPI General Mode of arrival: ambulatory . Date/Time Provider Initiated Documentation: 12/30/23 12:48 . Limitations to Documentation: no limitations . Information obtained by: patient, RN notes reviewed and old records reviewed . Related Data Home Medications ?Medication ?Instructions ?Recorded ?Confirmed ibuprofen 400 mg tablet 1 tab PO PRN PRN 07/02/18 12/30/23 Adderall XR 30 mg capsule,extended 30 mg PO DAILY #28 caps 12/16/23 12/30/23 release (dextroamphetamine-amphetamine) Adderall XR 15 mg capsule,extended 15 mg PO DAILY ADD #28 caps 12/30/23 release (dextroamphetamine-amphetamine) lidocaine 4 % topical patch 1 patch topical DAILY PRN pain #15 12/30/23 ea Previous Rx's ?Medication ?Instructions ?Recorded Adderall XR 30 mg capsule,extended 30 mg PO DAILY #28 caps 12/16/23 release (dextroamphetamine-amphetamine) Adderall XR 15 mg capsule,extended 15 mg PO DAILY ADD #28 caps 12/30/23 release (dextroamphetamine-amphetamine) lidocaine 4 % topical patch 1 patch topical DAILY PRN pain #15 12/30/23 ea Allergies Allergy/AdvReac Type Severity Reaction Status Date / Time No Known Allergies Allergy Verified 12/30/23 12:30 General Stated Complaint: Chest/Rib LONNY: 4 Exam Narrative Exam Narrative: General: Well Developed, Awake and Alert, conversant. Skin: Warm and Dry HEENT: Head: No palpable deformities, Normocephalic Eyes: Pupils PERRLA, EOM's intact. No periorbital eccymosis or step off Ears: Canal patent. Tympanic membranes are clear . No howe's sign, no hemptympanum. Nose/Face: Atraumatic. Facial bones nontender to palpation and stable with manipulation. Mouth/Throat: No intraoral trauma. Teeth and mandible are intact. Neck: No midline tenderness, no step off, no deformity to palpation of C-spine. Trachea midline. Chest: No surface trauma. Nontender without crepitus or deformity. Lungs clear to ausculatation bilaterally. Heart: RRR, no rubs, murmurs or gallop. Abdomen: No abrasions, ecchymosis, or surface trauma. Nondistended. Nontender to palpation no guarding, rebound, or rigidity. Back: Tenderness to left mid paraspinous area, he reports as his oblique muscle is tender. No midline tenderness crepitus or step-off, no contusions or bruising noted. No CVA tenderness. Pelvis: Nontender to palpation and stable to compression. Femoral pulses strong and equal Extremities: no surface trauma. Sensation intact. Peripheral pulses intact and equal. Neuro: ANO x4, GCS 15, cranial nerves II through XII intact. Motor and sensory exam nonfocal. Reflexes are symmetric. Course Vital Signs Vital signs: Vital Signs Temperature 37.0 C 12/30/23 12:28 Pulse 76 12/30/23 12:28 Respiratory Rate 20 12/30/23 12:28 Blood Pressure 155/83 H 12/30/23 12:28 Pulse Oximetry 99 12/30/23 12:28 Temperature 37.0 C 12/30/23 12:28 Temperature Source Skin 12/30/23 12:28 Pulse 76 12/30/23 12:28 Respiratory Rate 20 12/30/23 12:28 Respiratory Effort Normal, Non-Labored 12/30/23 13:22 Blood Pressure 155/83 H 12/30/23 12:28 Blood Pressure Position Sitting 12/30/23 12:28 Pulse Oximetry 99 12/30/23 12:28 Oxygen Delivery Method Room Air 12/30/23 12:28 Oxygen Flow Rate 0 12/30/23 12:28 Pain Level 6 12/30/23 12:28 Medical Decision Making 28-year-old male presents to the ER with a chief complaint of left posterior oblique tenderness after batting. He reports he felt a pop and felt something give way. He notes some increased shortness of breath. Chest x-ray rib series shows no pneumothorax no rib fractures. He has been taking Tylenol ibuprofen at home with little to no relief. He is speaking in full sentences no other associated symptoms or concerns. Denies any problems urinary, abdominal pain or any other complaints. Differential diagnosis includes but not limited to rib fracture, muscle strain, costochondritis, muscle tear, pneumothorax. Lidocaine patch applied. Prescription given for lidocaine patches. Instructed to take Tylenol ibuprofen at home. Discussed home care alternating ice and heat and follow-up care and strict return instructions to return if any worsening shortness of breath, cough, nausea vomiting diarrhea, pain in back or abdomen or concerns he verbalizes understanding. Patient discharged in hemodynamically stable condition alert and oriented. Follow up with primary care provider in 3-5 days. Return to ED sooner if any worsening or concerns. Imaging Data Radiologic Study: Imaging: X-Ray Radiologist's impression: XR RIBS LT W PA LAT CHEST EXAM: XR RIBS LT W PA LAT CHEST CLINICAL HISTORY: Left rib pain. TECHNIQUE: 2D digital imaging was performed. COMPARISON: No exams were available for comparison FINDINGS: Total = 6 views Left ribs-four views: No obvious left rib fractures. Clavicle intact. Chest x-ray-two views: Heart size normal. Mediastinum is not widened. No infiltrates nor pleural effusions. No pneumothorax. IMPRESSION: No left rib fractures evident. No acute pulmonary findings. No pneumothorax. Quality:[facility] Health Related Social Needs: No Data to Display PFSH All Active Problems (Updated 12/30/23 @ 15:11 by Rosanna Manzanares NP) Musculoskeletal strain (Acute) Back pain (Acute) ADD (attention deficit disorder) (Acute) Anxiety and depression (Chronic) Chest pain, atypical (Acute) Exposure to body fluid (Acute) Physical exam (Acute) Encounter for immunization (Acute) Pilonidal cyst (Chronic) Has had 2 I&Ds for this but no surgical repair Tonsillar hypertrophy (Acute) Medical History No significant past medical history Surgical History H/O wisdom tooth extraction S/P right rotator cuff repair (~2018) Family History Mother No problems noted. Father No problems noted. Sister No problems noted. Brother No problems noted. Maternal Grandfather , in his 80s Heart disease Myocardial infarction Bladder cancer Maternal Grandmother No problems noted. Paternal Grandfather Heart disease Paternal Grandmother Hypertension Depression Pancreatic cancer Type 2 diabetes mellitus Social History Smoking/Tobacco Use Status: Never Smoking risk assessment performed?: Yes Alcohol Intake: current Alcohol Intake frequency: holidays/special occasions only Alcohol type: beer Drug use: Never Substance use type: does not use Do you feel safe at home: Yes Do you feel safe in your relationship?: Yes
[2023-12-30] MEDS: Lidocaine 5% Patch 1 PATCH TP (15:21)
== END 2023-12-30 15:24 | disposition home or self-care (01) ==
PROVIDERS: Emergency Provider Registered Nurse Emergency; PCP Family Medicine
DX: S29.012A Strain of muscle and tendon of back wall of thorax, initial encounter (principal); X50.9XXA Other and unspecified overexertion or strenuous movements or postures, initial encounter; Y93.64 Activity, baseball; Y92.39 Other specified sports and athletic area as the place of occurrence of the external cause
CPT/HCPCS: 99283; 71046; 71100

== ENCOUNTER 2024-12-09 11:02 | Emergency (ER) | payer OTHER, SELFPAY ==
[2024-12-09 11:17] VITALS: BP 125/87; PULSE 92; RESP 18; TEMP 36.9; O2SAT 98
--- NOTE | 2024-12-09 11:43 | ED.GENADUL_ITS ---
Discharge Plan Disposition Patient Disposition: Home Discharge Details Clinical Impression: Acute streptococcal pharyngitis, Left lateral abdominal pain Primary Care Provider: Charly Vázquez ED Provider: Servando El [place] Meds and New Rx's Prescriptions: New amoxicillin 500 mg capsule 500 mg PO Q12H Qty: 20 0RF Continued dextroamphetamine-amphetamine [Adderall XR] 30 mg capsule,extended release 24hr 30 mg PO DAILY MDD 45 mg Qty: 28 0RF dextroamphetamine-amphetamine [Adderall XR] 15 mg capsule,extended release 24hr 15 mg PO DAILY MDD 3 caps Qty: 28 0RF ibuprofen 400 mg Tablet 1 tab PO PRN PRN Discharge Instructions Additional Instructions: You are seen in the Emergency Department for your sore throat. You are found to have strep for which you are receiving antibiotics that you should take as directed. As we discussed if develop worsening pain fevers cannot eat or drink or any other concerns please return to the emergency department. Concerning your abdominal pain it is certainly possible that you may have a small hernia. Please coordinate with your primary care provider to touch base about next steps. As we discussed if you develop worsening pain nausea or vomiting or if you cannot eat or drink please return to the emergency department. Discharge Data Discharge Date/Time-TO BE ENTERED AT DEPARTURE: 12/09/24 12:04 HPI General Date/Time Provider Initiated Documentation: 12/09/24 11:34 . HPI Narrative: MDM This is an overall very well-appearing normothermic and not tachycardic 29-year-old male with acute strep pharyngitis for which patient will receive dexamethasone and amoxicillin along with empiric trial of discharge with expectant outpatient management. No pain out of proportion to suggest necrotizing soft tissue infection. Good range of motion in neck so I am not suspicious for retropharyngeal abscess. Handling secretions so my suspicion is low for epiglottitis. Nontoxic so doubt bacterial tracheitis. No cough nor shortness of breath to suggest pneumonia. Uvula midline so doubt peritonsillar abscess. Patient also has left-sided intermittent abdominal discomfort and a bulge. On exam there is possibility that he has a small left-sided ventral hernia. No diarrhea nor left lower quadrant tenderness to suggest diverticulitis. No right lower quadrant tenderness to suggest appendicitis. No rash to abdomen to suggest zoster. He has no signs of skin changes to suggest strangulation. There is no obvious hernia sac so I am not suspicious for incarcerated hernia. As result I do not feel the patient required assessment as lab works normal lactate level. I considered whether or not to obtain a CT scan of the patient. Given that he is tolerating p.o. and neither nauseous nor vomiting I did not feel that he required an emergent CAT scan. We discussed that he could follow-up with his primary care provider and possibly be referred to a general surgeon for assessment of a hernia. We also discussed that if he develops abdominal pain nausea vomiting skin changes or any sudden increasing pain that he should go immediately to the nearest emergency care center. I sent a prescription for his amoxicillin on his pharmacy. He will follow-up with his PCP. He was discharged as he understood his return indications. HPI This is a patient with a history of suspected hernia presenting with a sore throat. The patient arrived in the ED by car. The patient reports the onset of a sore throat this morning, with no prior symptoms reported yesterday. The patient's everette, who works in a daycare, was tested for strep throat on 12/08/2024 and is showing signs of improvement today. They have a 2-year-old daughter who is currently healthy. The patient suspects the presence of a hernia due to a noticeable bulge and dull pain that intensifies during physical activities such as lifting or swinging, particularly when playing softball. The patient describes the sensation as unusual rather than painful. The patient has not undergone a CT scan for this issue. The patient also reports feelings of nausea but has not experienced any episodes of vomiting. The patient attempted to seek medical attention at an urgent care facility today but left due to a 2.5-hour wait time. The patient does not experience any burning sensation during urination. Exam General: Well-appearing in no acute distress speaking in complete sentences. Head: Normocephalic, atraumatic. Eye: Extraocular eye movements intact. No conjunctival injection. No scleral icterus. Ear, nose, mouth, throat: Mild posterior oropharynx erythema. Uvula midline. No brawny edema submentally. Normal voice, handling secretions normally. Neck: Trachea midline.Good range of motion in neck. Cardiovascular: Well-perfused distal extremities. Respiratory: Nonlabored respiration. Gastrointestinal: Nondistended abdomen. Soft. Nontender. No rebound. No guarding. Mild left lateral abdominal wall tenderness. No obvious hernia sac. No skin changes. No rash to abdomen. Musculoskeletal: No edema. Moving all 4 extremities spontaneously. Skin: Normal for age and race, grossly normal temperature and turgor. No acute rash. Neurologic: Alert and appropriate, no apparent acute deficits. Psychiatric: Mood and manner are appropriate. Grooming and personal hygiene are appropriate. Related Data Home Medications ?Medication ?Instructions ?Recorded ?Confirmed ibuprofen 400 mg tablet 1 tab PO PRN PRN 07/02/18 Adderall XR 15 mg capsule,extended 15 mg PO DAILY ADD #28 caps 11/10/24 12/09/24 release (dextroamphetamine-amphetamine) Adderall XR 30 mg capsule,extended 30 mg PO DAILY #28 caps 11/10/24 12/09/24 release (dextroamphetamine-amphetamine) amoxicillin 500 mg capsule 500 mg PO Q12H #20 caps 08/04 Previous Rx's ?Medication ?Instructions ?Recorded Adderall XR 15 mg capsule,extended 15 mg PO DAILY ADD #28 caps 11/10/24 release (dextroamphetamine-amphetamine) Adderall XR 30 mg capsule,extended 30 mg PO DAILY #28 caps 11/10/24 release (dextroamphetamine-amphetamine) amoxicillin 500 mg capsule 500 mg PO Q12H #20 caps 08/04 Allergies Allergy/AdvReac Type Severity Reaction Status Date / Time No Known Allergies Allergy Verified 12/09/24 11:17 General Stated Complaint: Sorethroat LONNY: 4 Course Vital Signs Vital signs: Vital Signs Temperature 36.9 C 12/09/24 11:17 Pulse 92 H 12/09/24 11:17 Respiratory Rate 18 12/09/24 11:17 Blood Pressure 125/87 12/09/24 11:17 Pulse Oximetry 98 12/09/24 11:17 Temperature 36.9 C 12/09/24 11:17 Temperature Source Oral 12/09/24 11:17 Pulse 92 H 12/09/24 11:17 Respiratory Rate 18 12/09/24 11:17 Blood Pressure 125/87 12/09/24 11:17 Blood Pressure Position Sitting 12/09/24 11:17 Pulse Oximetry 98 12/09/24 11:17 Oxygen Delivery Method Room Air 12/09/24 11:17 Oxygen Flow Rate 0 12/09/24 11:17 Pain Level 4 12/09/24 11:17 Lab/Test Results Lab/Test Results: POC Strep Test-[facility](Rapid) Start: 12/09/24 11:27 Freq: .Rapid Strep Test Status: Active Protocol: Document 12/09/24 11:28 [facility] (Rec: 12/09/24 11:28 [facility] ed) Strep test-[facility](Rapid)-POC POC-Strep test-[facility] ( Positive Rapid) POC-Strep test-[facility] (Rapid) Positive PFSH All Active Problems (Updated 12/09/24 @ 11:44 by Servando El MD) Left lateral abdominal pain (Acute) Acute streptococcal pharyngitis (Acute) Overweight (Acute) Fatigue (Acute) Migraine headache without aura (Acute) Apnea spell (Acute) Back pain (Acute) ADD (attention deficit disorder) (Acute) Anxiety and depression (Chronic) Chest pain, atypical (Acute) Exposure to body fluid (Acute) Physical exam (Acute) Encounter for immunization (Acute) Pilonidal cyst (Chronic) Has had 2 I&Ds for this but no surgical repair Tonsillar hypertrophy (Acute) Medical History No significant past medical history Surgical History H/O wisdom tooth extraction S/P right rotator cuff repair (~2018) Family History Mother No problems noted. Father No problems noted. Sister No problems noted. Brother No problems noted. Maternal Grandfather , in his 80s Heart disease Myocardial infarction Bladder cancer Maternal Grandmother No problems noted. Paternal Grandfather Heart disease Paternal Grandmother Hypertension Depression Pancreatic cancer Type 2 diabetes mellitus Social History Smoking/Tobacco Use Status: Never Smoking risk assessment performed?: Yes Alcohol Intake: current Alcohol Intake frequency: a few times a month Alcohol type: beer Drug use: Never Substance use type: does not use Do you feel safe at home: Yes Do you feel safe in your relationship?: Yes
[2024-12-09] MEDS: Amoxicillin 500 MG CAP PO (11:59)
[2024-12-09] MEDS: Dexamethasone 4 MG TAB 10 MG PO (12:00)
== END 2024-12-09 12:04 | disposition home or self-care (01) ==
PROVIDERS: Emergency Provider Emergency Medicine; PCP Family Medicine
DX: J02.0 Streptococcal pharyngitis (principal); R10.32 Left lower quadrant pain
CPT/HCPCS: 87880; 99283; J8540